=== PATIENT | male | born 1985 | race Caucasian/White ===

== ENCOUNTER → 2018-06-08 | Outpatient (CLI) | payer MEDICAID ==
[~2018-06-08] MED LIST: ONDA4TAB PO; TRAM-420 PO
--- NOTE | 2018-06-08 14:14 | RADIOLOGY IMAGING REPORT ---
FACILITY: [facility] PATIENT NAME: Rajeev Faith : 1985 MR: [id number] V: [id number] EXAM DATE: ORDERING PHYSICIAN: FIONA HORNE TECHNOLOGIST: Location: [facility] Patient: Rajeev Faith : 1985 Visit/Account:[id number] Date of Sevice: 06/08/2018 Exam type: CERVICAL SPINE MIN 4 VIEW History: Cervicalgia x4 months Comparison: None. Findings: There is straightening of normal cervical lordosis which can be seen with muscle spasm is no evidence of acute fractures or subluxations. The disc spaces appear well-preserved. The neural foramina ajit ear widely patent There is no evidence of prevertebral soft tissue swelling IMPRESSION: 1. There is straightening of normal cervical doses which can be seen with muscle spasm Report Dictated By: Vangie Jiménez MD at 06/08/2018 2:04 PM Report E-Signed By: Vangie Jiménez MD at 06/08/2018 2:05 PM FILEMONN:[id number]
== END ==
LOC: RAD 10:17
PROVIDERS: ATTEND Family Medicine
DX: M54.2 Cervicalgia (principal)
CPT/HCPCS: 72050